=== PATIENT | female | born 1930 | race Asian ===

== ENCOUNTER → 2017-10-03 | Outpatient (CLI) | payer OTHER ==
[~2017-10-03] MED LIST: ACET-66 PO; ADV250 IH; AMLO-511 PO; ASPI81TA33 PO; FURO20 PO; GABA-531 PO; HYDR25TA PO; METF500T4 PO; MIRALAX PO; PREDAOS OD; TIOT185 IH
== END | disposition home or self-care (01) ==
LOC: RADPV 13:51
PROVIDERS: ATTEND Internal Medicine
DX: J98.4 Other disorders of lung (principal); I51.7 Cardiomegaly; I70.0 Atherosclerosis of aorta
CPT/HCPCS: 71046